=== PATIENT | female | born 1970 | race Caucasian/White ===

== ENCOUNTER → 2021-12-10 09:09 | Outpatient (BNVA) | payer MEDICARE, MEDICAID, SELFPAY | PROVIDERS: Visit Provider Physician Assistant Surgical | DX: E66.9 Obesity, unspecified (principal) | CPT/HCPCS: 99202 ==

== ENCOUNTER → 2021-12-15 07:51 | Outpatient (REF) | payer MEDICARE, MEDICAID, SELFPAY ==
--- NOTE | ~2021-12-15 | XR_ITS ---
EXAMINATION: XR CHEST CLINICAL INFORMATION: Obesity unspecified. COMPARISON: None TECHNIQUE: 2 views of the chest were obtained. FINDINGS: Central venous catheter tip in region of SVC No significant abnormality is noted involving the heart, lungs, mediastinum, bony thorax or soft tissues. XR/XR chest 2V IMPRESSION: No acute disease
--- NOTE | 2021-12-15 08:44 | ECG_ITS ---
Test Reason : obesity Blood Pressure : / mmHG Vent. Rate : 071 BPM Atrial Rate : 071 BPM P-R Int : 168 ms QRS Dur : 086 ms QT Int : 404 ms P-R-T Axes : 034 050 067 degrees QTc Int : 439 ms Normal sinus rhythm Normal ECG No previous ECGs available Referred By: Albert Ag Electronically Signed By:VELASQUEZ YEH
[2021-12-16 15:34] LABS: H Pylori Breath Test Negative (Negative)
== END ==
LOC: HO.CARD 07:51
PROVIDERS: Visit Provider Physician Assistant Surgical
DX: E66.9 Obesity, unspecified (principal); Z11.0 Encounter for screening for intestinal infectious diseases
CPT/HCPCS: 36415; 71046; 83013; 93005; 99211

== ENCOUNTER → 2022-01-04 14:24 | Outpatient (BNVA) | payer MEDICARE, MEDICAID, SELFPAY | PROVIDERS: Referring Provider Physician Assistant Surgical; Visit Provider Dietitian, Registered | DX: E66.9 Obesity, unspecified (principal); Z68.35 Body mass index [BMI] 35.0-35.9, adult; Z71.3 Dietary counseling and surveillance | CPT/HCPCS: 97802 ==

== ENCOUNTER → 2022-01-11 13:00 | Outpatient (BNVA) | payer MEDICARE, MEDICAID, SELFPAY | PROVIDERS: Referring Provider Physician Assistant Surgical; Visit Provider Counselor Mental Health | DX: F43.20 Adjustment disorder, unspecified (principal); M06.9 Rheumatoid arthritis, unspecified; E66.9 Obesity, unspecified | CPT/HCPCS: 90791 ==

== ENCOUNTER → 2022-01-19 10:14 | Outpatient (BNVA) | payer MEDICARE, MEDICAID, SELFPAY | PROVIDERS: Visit Provider Surgery | DX: E66.9 Obesity, unspecified (principal); R07.9 Chest pain, unspecified; M06.9 Rheumatoid arthritis, unspecified | CPT/HCPCS: Q3014 ==

== ENCOUNTER → 2023-08-08 10:43 | Outpatient (BNVA) | payer MEDICARE, MEDICAID, SELFPAY | PROVIDERS: Visit Provider Physician Assistant Surgical ==

== ENCOUNTER 2023-10-06 08:12 | Outpatient (AMB) | payer MEDICARE, MEDICAID, SELFPAY ==
--- NOTE | 2023-10-06 12:08 | A.OFFVIS_ITS ---
VS Expanded 10/06/23 12:27 Height 5 ft 5.5 in Weight 228 lb 4 oz BMI 37.4 Body Fat % 42 Body Fat Mass 96 Fat Free Mass 132.4 Visceral Fat Rating 12 Body Water % 41.3 Body Water Mass 94.4 Basal Metabolic Rate/Score 1,834 Intake Visit Reasons: TV Re-Est SWL BMI 37.5 *SEE COMMENTS* Allergies morphine Allergy (Verified 10/06/23 12:09) Rash Penicillins Allergy (Verified 10/06/23 12:09) Rash Medication List - Last Reconciled 10/06/23 by Quincy Roblero MD albuterol sulfate 90 mcg/actuation inhalation atorvastatin 80 mg PO DAILY exenatide microspheres ER (Bydureon BCise) mg subcut gabapentin 600 mg PO TID infliximab-abda IV insulin glargine U-300 conc (Toujeo Max U-300 SoloStar) 45 units subcut BID insulin lispro (Humalog KwikPen (U-100) Insulin) subcut metformin ER 1,500 mg PO DAILY naloxone 4 mg/actuation intranasal ondansetron HCl mg PO oxycodone-acetaminophen 5-325 mg 2 tabs PO TID PRN HPI HPI TV Re-Est SWL BMI 37.5 *SEE COMMENTS*: Details: Start time: 12pm, End time: 12.47pm ?I spent 42 minutes speaking with the patient on the phone plus an additional 5 minutes reviewing and updating records for a total of 47 minutes HPI Comments Details: Previous weight loss methods: protein shakes, Gym Wakes up: 7am, Sleeps: 9pm Breakfast: 9am (eggs, toast, sandwich) Lunch: skips Dinner: 4pm (rice, meat salad) Snacks: 1pm (fruits), 8pm (cornflakes, bread) Exercise: none, gym membership Fluids: Coffee (1 cup/day with milk and sugar), tea: none, soda: none, juice: zero calorie juice, ETOH: none PFSH Medical History (Updated 10/06/23 @ 12:16 by Quincy Roblero MD) Asthma Insomnia DJD (degenerative joint disease) Neuropathy Insulin dependent diabetes Psychogenic nonepileptic seizure Encounter for intravenous line placement Gall bladder stones Complication of section wound Surgical History (Updated 01/19/22 @ 14:34 by Quincy Roblero MD) History of colostomy reversal H/O shoulder surgery delivery delivered History of cholecystectomy Ovary removal, prophylactic H/O: hysterectomy Colostomy status Family History Mother Hypertension Father No problems noted. Social History Alcohol intake: never Patient Tobacco Use Status: Former Tobacco user Telehealth Telehealth Telehealth Platform: Telephone Location of provider rendering services: practice address Location of patient: address on file Patient Identification confirmed using: Name, : Yes Telehealth method: voice only Patient verbally consented to treatment: Yes Patient verbally consented to billing insurance company: Yes Patient informed of any privacy concerns related to visit: Yes Minutes spent on Phone/Video with Pt.: 47 Assessment & Plan Assessment & Plan (1) Obesity (BMI 30-39.9): Code(s): E66.9 - Obesity, unspecified Category: Medical Plan: 1.? Plan for lap sleeve gastrectomy. If diaphragmatic or ventral hernias are present at time of surgery, these will be repaired laparoscopically as well. Risks and complications were discussed in detail including possible conversion to an open procedure, anastomotic leak, bleeding requiring transfusion, small bowel obstruction, , DVT and pulmonary embolism, cardiac, or pulmonary complications, as retirement complications such as anastomotic ulcer, insufficient weight loss and vitamin deficiencies. I emphasized the importance of close follow-up, adherence to instructions and good communication. 2. You will receive a link of our software marcela to generate an individualized nutritional and exercise plan specific for you. Please send me a screenshot of the plans you will generate Meal to include lean meat (beef, fish, pork, turkey, chicken), or citizen of [place] yogurt, or egg whites, or beans with a salad with olive oil and fruits (berries, pears, apples, kiwi). Avoid salt, breads, potatoes, rice, pasta, desserts. ?3. If you choose shakes, each shake would be drunk slowly, like coffee in a period of 2 hours. ?4. If you choose bars, cut each bar in 4 pieces and eat each piece in 30min ?to make each bar last 2 hours. ?5. I emphasized the importance of measuring accurately the food portion and measure it when serving the food in plate ?6. The meal portions include a specific number of forks of meat and salad. You always eat the meat portion but you can replace up to half of salad/vegetables portion with rice, potatoes or pasta, or a fruit ?if you like. The less you do it the better weight loss will be. ?7. One full-size fork is what it can be scooped on the fork without falling aside and not what can be bit with the fork. Use regular forks like those you find in a typical restaurant. ?8.? Please send me weight measurements as soon as possible and then once a week. Always include your diet and exercise plan. 9. The best choice would be to purchase a stationary bike, elliptical or treadmill at home that can track calories. Let me know if you do so I can give you an exercise plan. ?10.?Goal is to lose at least 1.5-2lbs per week ?11. Goal to lose 10% of your weight before surgery, which is about 23lbs. Ultimate weight goal: 205lbs before surgery 12. Please follow the diet plan exactly without any change. If you don't like something about the plan or you feel hungry you need to communicate with me so I can help you revise the plan. You should not change the plan yourself. 13. To be scheduled for EGD to assess the anatomy of the stomach. The possibility of biopsies was discussed. Patient needs to avoid use of NSAIDs and aspirin for 1 week prior to EGD. Risks of perforation and bleeding was discussed with the patient. This will be an outpatient procedure with IV sedation.
[2023-10-06 12:27] VITALS: BMI 37.4
== END 2023-10-06 12:49 | disposition home or self-care (01) ==
LOC: HO.HBS 08:12
PROVIDERS: Visit Provider Surgery
DX: E66.9 Obesity, unspecified (principal); Z68.37 Body mass index [BMI] 37.0-37.9, adult
CPT/HCPCS: 99443

== ENCOUNTER → 2023-10-06 08:12 | Outpatient (BNVA) | payer MEDICARE, MEDICAID, SELFPAY | PROVIDERS: Visit Provider Surgery ==

== ENCOUNTER 2023-10-25 13:04 | Outpatient (AMB) | payer MEDICARE, MEDICAID, SELFPAY ==
--- NOTE | 2023-10-25 12:44 | MHC.WMTHER ---
Intake Intake Visit Reasons: (TV) BH Intake Allergies morphine Allergy (Verified 10/06/23 12:09) Rash Penicillins Allergy (Verified 10/06/23 12:09) Rash [facility] Medical History (Updated 10/25/23 @ 12:57 by Lexy Sarmiento) Asthma Insomnia DJD (degenerative joint disease) Neuropathy Insulin dependent diabetes Psychogenic nonepileptic seizure Encounter for intravenous line placement Gall bladder stones Complication of section wound Surgical History (Updated 01/19/22 @ 14:34 by Quincy Roblero MD) History of colostomy reversal H/O shoulder surgery delivery delivered History of cholecystectomy Ovary removal, prophylactic H/O: hysterectomy Colostomy status Family History Mother Hypertension Father No problems noted. Social History Alcohol intake: never Patient Tobacco Use Status: Former Tobacco user Behavioral Health Assessment Weight Management Therapy Therapy Notes Details Patient is looking to improve her health and quality of life. Pt is worried about her health particularly her diabetes. Pt is currently not therapy. She reported that she was many years ago in [place] after going though a difficult divorce. Pt also reported being admitted to a psychiatric facility at that time due to depression. Also reported receiving 25 sessions of ECT which she deeply regrets due to memory loss. Also 30 years ago again admission to psychiatric hospital due to loss of custody of her children to their father. Pt denied any problems with drugs or alcohol in the past. Presenting Concerns Referral Source provider Reason for referral weight loss surgery evaluation Precipitating Event obesity Living Situation Current Living Situation Own and Rent At risk of losing current housing? No Satisfied with current living situation? Yes Comments Pt lives in her own home with her , son, her sister and her mother. Food/Weight/Diet Expectations of change weight loss and maintenance History/Relationship with food Patient reported that she loves cooking, and eats bread, potatoes. Also was drinking juice. Patient reported that she would skip breakfast often and then get fast food due to hunger mid day. History/Relationship with weight Patient quit smoking 17 years ago and believes she replaced smoking with food. She was very thin prior to that. History/Relationship with dieting Pt has been the same weight since she was in the program in 2021. At that time she stopped WMP due to trying to buy a house and going through some changes. Binge Eating Do you frequently eat large amounts of food in short periods of time, not feeling physically hungry? No Do you feel out of control when you eat a large amount of food in a short period of time? No Do you eat large amounts of food rapidly and typically alone? Yes Night Eating Do you wake up at least once during the night to eat? No If you wake up in the night, do you find that it is necessary to eat something in order to fall back asleep? No Do you have little or no appetite in the morning and feel very hungry in the evening, often overeating between dinner and when you go to bed? Yes Social History Family history and relationship Pt has two adult children. She was born and raised in [place] until she moved here 8 years when she got to her current . She reported having a good childhood with loving family and parents. Parental/Familial foreman/project manager obligations helps care for her elderly mother who lives with her and her sister helps as well. Developmental history and status no issues Social support , family, friend Community support episcopal community Mormonism/Spirituality Confucianist Cultural/Ethnic information Legal Involvement and History Current or historical involvement with the legal system? n/a Education Highest grade completed college degree Preferred learning style Auditory, Verbal, Written, Learn by doing and Visual Currently enrolled in educational program? No Interested in further educational program? No Educational Interests/Skills She is currently not working. She helps care for her mother who lives with her. Employment Employment Status Other Wants help to find employment? No Meaningful activities episcopal involvement Financial Situation Describe current financial situation Comfortable Financial assistance? None and Disability Service Service? No Mental Health and Addiction Treatment Current/Past substance abuse? No Current/Past addictive behavior concerns? No Medical and Physical Health Summary Physical exam in the last year? Yes Pain Screening Current pain? Yes Pain in the last few months? Yes Comments Pain from RA. Medications Is the patient compliant with medications? Yes Does the patient have Lockhart Guardian in place? Not applicable Does the patient use complimentary health approaches? Yes Trauma/Abuse History History of trauma? No Questionnaires PHQ-9 Over the last 2 weeks, how often have you been bothered by any of the following problems? 1. Little interest or pleasure in doing things: not at all 2. Feeling down, depressed, or hopeless: several days 3. Trouble falling or staying asleep, or sleeping too much: several days 4. Feeling tired or having little energy: several days 5. Poor appetite or overeating: not at all 6. Feeling bad about yourself - or that you are a failure or have let yourself or your family down: not at all 7. Trouble concentrating on things, such as reading the newspaper or watching television: not at all 8. Moving or speaking so slowly that other people could have noticed. Or the opposite - being so fidgety or restless that you have been moving around a lot more than usual: not at all 9. Thoughts that you would be better off or of hurting yourself in some way: not at all Total score: 3 Depression Screening Interpretation: Negative Depression Screening Done: Yes Source: Developed by Drs. Fredrick Eddy, Yamileth Carrillo, Javid Hubbard and colleagues, with an educational alireza from [employer]. Assessment & Plan Assessment & Plan (1) Depression: Code(s): F32.A - Depression, unspecified (2) Obesity (BMI 30-39.9): Code(s): E66.9 - Obesity, unspecified (3) Rheumatoid arthritis: Code(s): M06.9 - Rheumatoid arthritis, unspecified Plan Pt has a history of depression, struggles with sleep, energy, getting out of bed, inflammation. She is motivated and doing well in the program. She is cleared for surgery when ready. Telehealth Telehealth Telehealth Platform: Telephone Location of provider rendering services: other Patient Identification confirmed using: Name, : Yes Telehealth method: voice only Patient verbally consented to treatment: Yes Patient verbally consented to billing insurance company: Yes Patient informed of any privacy concerns related to visit: Yes Minutes spent on Phone/Video with Pt.: 30 Coding Level of Care Code Tele Psy Diag Eval (14236) Diagnoses Depression F32.A Obesity (BMI 30-39.9) E66.9 Rheumatoid arthritis M06.9 Time Spent (min) 30
== END 2023-10-25 14:00 | disposition home or self-care (01) ==
LOC: HO.HBST 13:04
PROVIDERS: Visit Provider Counselor Mental Health
DX: F32.0 Major depressive disorder, single episode, mild (principal); E66.9 Obesity, unspecified; Z68.37 Body mass index [BMI] 37.0-37.9, adult; M06.9 Rheumatoid arthritis, unspecified
CPT/HCPCS: 99443

== ENCOUNTER → 2023-10-25 13:04 | Outpatient (BNVA) | payer MEDICARE, MEDICAID, SELFPAY | PROVIDERS: Visit Provider Counselor Mental Health | DX: F32.A Depression, unspecified (principal); E66.9 Obesity, unspecified; M06.9 Rheumatoid arthritis, unspecified ==